=== PATIENT | male | born 1980 | race Caucasian/White ===

== ENCOUNTER 2021-03-14 10:48 | Outpatient (REF) | payer MEDICARE, MEDICAID, SELFPAY ==
--- NOTE | 2021-03-14 13:28 | MHC.AU.HFU ---
Hearing Instrument Follow-Up- Binaural Date of Visit: 03/14/21 Right Ear: Manufacturing Automation Engineer: Phonak Model: Fresh Nationeo M50-13T Serial Number: [id number] Repair Warranty: 03/25/2023 Loss and Damage Warranty: 04/05/2023 Battery Size: 13 Type of Mold: Slim Tip Type of Wax Guard: CeruStop Left Ear: Manufacturing Automation Engineer: Phonak Model: Fresh Nationeo M50-13T Serial Number: [id number] Repair Warranty: 04/05/2023 Loss and Damage Warranty: Loss and Damage used for left instrument on 07/08/2020 Battery Size: 13 Type of Dome: Small Open Type of Wax Guard: CeruShield Follow-Up Summary: Patient requested hearing aid maintenance and volume increase. Maintenance performed. Slim tip cleaned. Wax guards replaced. Left dome and retention tail replaced. Battery compartments cleaned. Hearing aids are amplifying clearly. At patient request, overall gain was raised on the right instrument by 5 steps. Feedback process improvement manager re-run. Patient was pleased with the adjustment. Patient was dispensed 42 batteries. He was dispensed 2 packs of wax guards. Recommendations: Recommendations: Hearing instrument follow-up or maintenance as needed. Diagnosis Code(s): Primary Diagnosis: H90.A31 Mixed HL, Unilateral Right Ear, W/Restricted Contralateral Signature: Provider: Jossy Leon, [facility]
== END 2021-03-14 10:49 | disposition home or self-care (01) ==
LOC: HO.HAP 10:48
PROVIDERS: Visit Provider Internal Medicine Gastroenterology
DX: Z46.1 Encounter for fitting and adjustment of hearing aid (principal); H90.A31 Mixed conductive and sensorineural hearing loss, unilateral, right ear with restricted hearing on the contralateral side
CPT/HCPCS: 92593; V5266

== ENCOUNTER 2021-03-14 11:18 | Outpatient (REF) | payer SELFPAY | END 2021-03-14 11:19 | disposition home or self-care (01) | LOC: HO.HAP 11:18 | PROVIDERS: Visit Provider Internal Medicine Gastroenterology | DX: Z46.1 Encounter for fitting and adjustment of hearing aid (principal); H90.A31 Mixed conductive and sensorineural hearing loss, unilateral, right ear with restricted hearing on the contralateral side | CPT/HCPCS: V5267 ==

== ENCOUNTER 2021-10-03 10:49 | Outpatient (REF) | payer MEDICARE, MEDICAID, SELFPAY ==
--- NOTE | 2021-10-06 08:01 | MHC.AU.HFU ---
Hearing Instrument Follow-Up- Binaural Date of Visit: 10/03/21 Right Ear: Inspector Fuel Hose: Phonak Model: Jossyeo M50-13T Serial Number: [id number] Repair Warranty: 03/25/2023 Loss and Damage Warranty: 04/05/2023 Battery Size: 13 Type of Mold: Slim Tip Type of Wax Guard: CeruStop Dispensed By: [facility] Date of Fittin01/03/2020 Left Ear: Inspector Fuel Hose: Phonak Model: Audeo M50-13T Serial Number: [id number] Repair Warranty: 04/05/2023 Loss and Damage Warranty: Loss and Damage used for left instrument on 07/08/2020 Battery Size: 13 Type of Dome: Small Open Type of Wax Guard: CeruShield Dispensed By: [facility] Date of Fittin01/03/2020 Follow-Up Summary: Patient reports that he is not hearing well out of his hearing aids and questions if he needs an adjustment. Hearing aid maintenance performed. Wax guard replaced in the left factory representative. On the right mold, it was noted that the ring was unable to hold a wax guard in place. Wax removed from the right factory representative. Debris vacuumed out of microphones. Hearing aids are amplifying clearly after maintenance. In [employer], it was noted that the feedback event marketing manager was cutting off a fair bit of high frequency gain. Re-ran feedback test which did not improve the cut-off level. Otoscopy performed- minimal cerumen bilaterally. The left dome was switched to a medium vented dome and feedback test was re-run. The amount of gain possible improved. An impression was taken of the right ear for a new cShell. This will allow for a tighter fit, and also address patient's concern that the current hollow slim tip tends to accumulate wax inside where his tools cannot reach. Overall gain increased by 2 steps. Patient was pleased with the improvement in the left hearing aid. Discussed that once the new cShell arrives, we should have more room to work with on the right hearing aid. Recommendations: Recommendations: Patient will be contacted when materials have arrived. Diagnosis Code(s): Primary Diagnosis: H90.A31 Mixed HL, Unilateral Right Ear, W/Restricted Contralateral Signature: Provider: Jossy Leon, [facility]
== END 2021-10-03 10:50 | disposition home or self-care (01) ==
LOC: HO.HAP 10:49
PROVIDERS: Visit Provider Internal Medicine Gastroenterology
DX: Z46.1 Encounter for fitting and adjustment of hearing aid (principal); H90.A31 Mixed conductive and sensorineural hearing loss, unilateral, right ear with restricted hearing on the contralateral side
CPT/HCPCS: 92593; V5275

== ENCOUNTER 2021-10-30 12:27 | Outpatient (REF) | payer MEDICARE, MEDICAID, SELFPAY | END 2021-10-30 12:28 | disposition home or self-care (01) | LOC: HO.HAP 12:27 | PROVIDERS: Visit Provider Internal Medicine Gastroenterology | DX: Z46.1 Encounter for fitting and adjustment of hearing aid (principal); H90.A31 Mixed conductive and sensorineural hearing loss, unilateral, right ear with restricted hearing on the contralateral side | CPT/HCPCS: V5264 ==

== ENCOUNTER 2021-12-24 10:28 | Outpatient (REF) | payer MEDICARE, MEDICAID, SELFPAY ==
--- NOTE | 2021-12-24 11:34 | MHC.AU.HFU ---
Hearing Instrument Follow-Up- Binaural Date of Visit: 12/24/21 Right Ear: Stucco Applicator: Phonak Model: Radiant Communicationseo M50-13T Serial Number: [id number] Repair Warranty: 03/25/2023 Loss and Damage Warranty: 04/05/2023 Battery Size: 13 Legal Stenographer: #2 Power Type of Dome: Large Power Dome Type of Mold: Canal Lock C-Shell #[id number] Warranty 02/12/2022 (Not Currently in Use) Type of Wax Guard: CeruShield Dispensed By: [facility] Date of Fittin01/03/2020 Left Ear: Stucco Applicator: Phonak Model: Radiant Communicationseo M50-13T Serial Number: [id number] Repair Warranty: 04/05/2023 Loss and Damage Warranty: Loss and Damage used for left instrument on 07/08/2020 Battery Size: 13 Legal Stenographer: #2 Medium Type of Dome: Large Vented Dome Type of Wax Guard: CeruShield Dispensed By: [facility] Date of Fittin01/03/2020 Follow-Up Summary: Patient reports that he accidentally dropped his right hearing and the canal lock portion of the cShell broke off, exposing the wiring inside. It is still working for the moment, but is more likely to have moisture issues since the wiring is exposed. Patient asked if he could try a dome on the right side instead. Switched to a size 2P web development intern with large power dome. Adjusted acoustic settings and re-ran feedback test. Patient preferred the sound and feel of the power dome. He also asked to change the left medium vented dome to a large. He also asked for overall gain to be raised- it was raised by 4 steps until patient reported the sound was comfortable and clear. Recommendations: Recommendations: Hearing instrument follow-up or maintenance as needed. Diagnosis Code(s): Primary Diagnosis: H90.A31 Mixed HL, Unilateral Right Ear, W/Restricted Contralateral Signature: Provider: Jossy Leon, [facility]
== END 2021-12-24 10:29 | disposition home or self-care (01) ==
LOC: HO.HAP 10:28
PROVIDERS: Visit Provider Internal Medicine Gastroenterology
DX: Z13.89 Encounter for screening for other disorder (principal)

== ENCOUNTER 2022-05-29 11:24 | Outpatient (REF) | payer SELFPAY | END 2022-05-29 11:25 | disposition home or self-care (01) | LOC: HO.HAP 11:24 | PROVIDERS: Visit Provider Internal Medicine Gastroenterology | DX: Z46.1 Encounter for fitting and adjustment of hearing aid (principal); H90.A31 Mixed conductive and sensorineural hearing loss, unilateral, right ear with restricted hearing on the contralateral side | CPT/HCPCS: 92593; V5267 ==

== ENCOUNTER 2022-06-02 13:44 | Outpatient (REF) | payer MEDICARE, MEDICAID, SELFPAY | END 2022-06-02 13:45 | disposition home or self-care (01) | LOC: HO.HAP 13:44 | PROVIDERS: Visit Provider Internal Medicine Gastroenterology | DX: Z13.89 Encounter for screening for other disorder (principal) ==

== ENCOUNTER 2022-07-23 10:56 | Outpatient (REF) | payer MEDICARE, MEDICAID, SELFPAY ==
--- NOTE | 2022-07-23 13:06 | MHC.AU.HFU ---
Hearing Instrument Follow-Up- Binaural Date of Visit: 07/23/22 Right Ear: Lpn Medical Assistant: Phonak Model: Beyond Credentialseo M50-13T Serial Number: [id number] Repair Warranty: 03/25/2023 Loss and Damage Warranty: 04/05/2023 Battery Size: 13 Physical Sciences Professor: #2 Power Type of Dome: Large Power Dome Type of Mold: Canal Lock C-Shell #[id number] Warranty 02/12/2022 (Not Currently in Use) Type of Wax Guard: CeruStop Dispensed By: [facility] Date of Fittin01/03/2020 Left Ear: Lpn Medical Assistant: Phonak Model: Audeo M50-13T Serial Number: [id number] Repair Warranty: 04/05/2023 Loss and Damage Warranty: Loss and Damage used for left instrument on 07/08/2020 Battery Size: 13 Physical Sciences Professor: #2 Medium Type of Dome: Large Vented Dome Type of Wax Guard: CeruShield Dispensed By: [facility] Date of Fittin01/03/2020 Follow-Up Summary: Both aids dropped off today with patient noting the right aid is not working, wants both aids louder, and does not want the domes on the aid(s) anymore. Right aid very weak, replaced #2 power traffic analysis technician with aid now amplifying clearly. Placed new domes on both aids and cleaned with both amplifying well. Left a voice message for patient saying the aids are both now working and replaced the domes. IF PATIENT WANTS TO CHANGE TO SLIM TIP (ANLY THE RIGHT TIP WAS DROPPED OFF. ? IF A SLIM TIP WAS EVER MADE FOR THE LEFT AID) PATIENT WILL NEED TO SCHEDULE AN APPOINTMENT WITH AN CLIENT SERVICE MANAGER. Diagnosis Code(s):Primary Diagnosis: H90.3 Bilateral Sensorineural Hearing Loss Signature:Provider: Arlette Cramer, [facility]
== END 2022-07-23 10:57 | disposition home or self-care (01) ==
LOC: HO.HAP 10:56
PROVIDERS: Visit Provider Internal Medicine Gastroenterology
DX: Z13.89 Encounter for screening for other disorder (principal)

== ENCOUNTER 2022-07-27 10:20 | Outpatient (REF) | payer MEDICARE, MEDICAID, SELFPAY | END 2022-07-27 10:21 | disposition home or self-care (01) | LOC: HO.HAP 10:20 | PROVIDERS: Visit Provider Internal Medicine Gastroenterology | DX: Z46.1 Encounter for fitting and adjustment of hearing aid (principal); H90.3 Sensorineural hearing loss, bilateral | CPT/HCPCS: V5266 ==

== ENCOUNTER 2022-08-14 12:51 | Outpatient (REF) | payer MEDICARE, MEDICAID, SELFPAY | END 2022-08-14 12:52 | disposition home or self-care (01) | LOC: HO.HAP 12:51 | PROVIDERS: Visit Provider Internal Medicine Gastroenterology | DX: Z46.1 Encounter for fitting and adjustment of hearing aid (principal); H90.3 Sensorineural hearing loss, bilateral | CPT/HCPCS: V5275 ==

== ENCOUNTER 2022-09-07 12:59 | Outpatient (REF) | payer MEDICARE, MEDICAID, SELFPAY ==
--- NOTE | 2022-09-07 13:55 | MHC.AU.HFU ---
Hearing Instrument Follow-Up- Binaural Date of Visit: 09/07/22 Right Ear: Jayce Almonte 50-13T Mershon Serial #[id number] Repair Warranty: 03/25/2023 Loss and Damage Warranty: 04/05/2023 Service Plan: 01/03/2021 Battery Size: 13 Almond Paste Molder: #2 Power Type of Dome: Large Power Dome Type of Mold: Canal Lock C-Shell #[id number] Remake Warranty 11/26/2022 Type of Wax Guard: CeruStop Dispensed By: [facility] Date of Fittin01/03/2020 Left Ear: Jayce Almonte 50-13T Mershon Serial #[id number] Repair Warranty: 04/05/2023 Loss and Damage Warranty: Loss and Damage used for left instrument on 07/08/2020 Service Plan: 01/03/2021 Battery Size: 13 Almond Paste Molder: #2 Medium Type of Dome: Large Vented Dome Type of Mold: Phonak Canal lock C-Shell #[id number] Remake Warranty 11/26/2022 Type of Wax Guard: CeruStop Dispensed By: [facility] Date of Fittin01/03/2020 Follow-Up Summary: Fit the new binaural canal lock C-Shells, changed acoustic parameters, and ran feedback test with good results. Patient reports better retention of the aids now. Reviewed wax guard change and using volume control if needed. [facility] Recommendations: Hearing instrument follow-up or maintenance as needed. Please contact our clinic with any questions or concerns. Diagnosis Code(s):Primary Diagnosis: H90.3 Bilateral Sensorineural Hearing Loss Services Performed:Earmold (Quantity): 2 Signature:Provider: Ed Cramer, [facility]
== END 2022-09-07 13:00 | disposition home or self-care (01) ==
LOC: HO.HAP 12:59
PROVIDERS: Visit Provider Internal Medicine Gastroenterology
DX: Z46.1 Encounter for fitting and adjustment of hearing aid (principal); H90.3 Sensorineural hearing loss, bilateral
CPT/HCPCS: V5264

== ENCOUNTER 2023-03-31 10:58 | Outpatient (REF) | payer MEDICARE, MEDICAID, SELFPAY | END 2023-03-31 10:59 | disposition home or self-care (01) | LOC: HO.HAP 10:58 | PROVIDERS: Visit Provider Internal Medicine Gastroenterology | DX: Z13.89 Encounter for screening for other disorder (principal) ==

== ENCOUNTER 2023-04-15 09:28 | Outpatient (REF) | payer MEDICARE, MEDICAID, SELFPAY | END 2023-04-15 09:29 | disposition home or self-care (01) | LOC: HO.HAP 09:28 | PROVIDERS: Visit Provider Otolaryngology | DX: Z46.1 Encounter for fitting and adjustment of hearing aid (principal); H90.3 Sensorineural hearing loss, bilateral | CPT/HCPCS: V5014; V5264; V5266 ==

== ENCOUNTER 2023-10-12 11:40 | Outpatient (REF) | payer MEDICARE, MEDICAID, SELFPAY | END 2023-10-12 11:41 | disposition home or self-care (01) | LOC: HO.HAP 11:40 | PROVIDERS: Visit Provider Internal Medicine | DX: Z46.1 Encounter for fitting and adjustment of hearing aid (principal); H90.3 Sensorineural hearing loss, bilateral | CPT/HCPCS: 92592; V5266 ==

== ENCOUNTER 2023-10-13 12:49 | Outpatient (REF) | payer MEDICARE, MEDICAID, SELFPAY | END 2023-10-13 12:50 | disposition home or self-care (01) | LOC: HO.HAP 12:49 | PROVIDERS: Visit Provider Internal Medicine Gastroenterology | DX: Z13.89 Encounter for screening for other disorder (principal) ==

== ENCOUNTER 2023-10-13 12:54 | Outpatient (REF) | payer MEDICARE, MEDICAID, SELFPAY | END 2023-10-13 12:55 | disposition home or self-care (01) | LOC: HO.HAP 12:54 | PROVIDERS: Visit Provider Internal Medicine Gastroenterology | DX: Z13.89 Encounter for screening for other disorder (principal) ==

== ENCOUNTER 2023-10-18 12:07 | Outpatient (REF) | payer MEDICARE, MEDICAID, SELFPAY | END 2023-10-18 12:08 | disposition home or self-care (01) | LOC: HO.HAP 12:07 | PROVIDERS: Visit Provider Internal Medicine Gastroenterology | DX: Z13.89 Encounter for screening for other disorder (principal) ==

== ENCOUNTER 2023-11-01 15:00 | Outpatient (REF) | payer MEDICARE, MEDICAID, SELFPAY ==
--- NOTE | 2023-11-02 08:08 | MHC.AU.HA3 ---
Hearing Instrument Follow-Up- Binaural Date of Visit: 11/01/23 Right Ear: Alvaro, , Color, Serial Number: Jayce Almonte 50-13T SN: [id number] Color: [place] Disassembler Repair Warranty: 03/25/2023 Disassembler Loss and Damage Warranty: 03/25/2023 [facility] Service Plan: 01/03/2021 Battery Size: 13 Continuity Writer/Slim Tube: #2 Power Earmold/Dome/CShell/SlimTip:Canal Lock C-Shell SN: [id number] Warranty: 07/05/2023 Type of Wax Guard: CeruStop Dispensed By: [facility] Date of Fittin01/03/2020 Left Ear: Alvaro, , Color, Serial Number: Jayce Almonte 50-13T SN: [id number] Color: [place] Disassembler Repair Warranty: 03/25/2023 Disassembler Loss and Damage Warranty: USED [facility] Service Plan: 01/03/2021 Battery Size: 13 Continuity Writer/Slim Tube: #2 Medium Earmold/Dome/CShell/SlimTip: Phonak Canal lock C-Shell SN: [id number] Warranty: 07/05/2023 Type of Wax Guard: CeruStop Dispensed By: [facility] Date of Fittin01/03/2020 Follow-Up Summary: Transferred left repaired ecological modeler wire and c-shell to Kenji's hearing aid. Returned loaner ecological modeler. Kenji had a doctor's order for an updated hearing test. Scheduled evaluation on 11/11/2023. Recommendations: Hearing instrument follow-up or maintenance as needed. Please contact our clinic with any questions or concerns. Diagnosis Code(s): Primary Diagnosis: H90.A31 Mixed HL, Unilateral Right Ear, W/Restricted Contralateral Secondary Diagnosis: H90.A22 SNHL, Unilatearl, Left Ear, W/Restricted Contralateral Hearing Signature: Provider: Ed Florez, [facility]
== END 2023-11-01 15:01 | disposition home or self-care (01) ==
LOC: HO.HAP 15:00
PROVIDERS: Visit Provider Internal Medicine
DX: Z46.1 Encounter for fitting and adjustment of hearing aid (principal); H90.A31 Mixed conductive and sensorineural hearing loss, unilateral, right ear with restricted hearing on the contralateral side; H90.A22 Sensorineural hearing loss, unilateral, left ear, with restricted hearing on the contralateral side
CPT/HCPCS: 92700; V5014

== ENCOUNTER 2023-11-11 12:49 | Outpatient (REF) | payer MEDICARE, MEDICAID, SELFPAY ==
--- NOTE | 2023-11-11 15:40 | MHC.AU.HA3 ---
Hearing Instrument Follow-Up- Binaural Date of Visit: 11/11/23 Right Ear: Alvaro, Model, Color, Serial Number: Jayce Almonte 50-13T SN: [id number] Color: [place] Truck Shop Supervisor Repair Warranty: 03/25/2023 Truck Shop Supervisor Loss and Damage Warranty: 03/25/2023 [facility] Service Plan: 01/03/2021 Battery Size: 13 Manufacturing Storeperson/Slim Tube: #2 Power Earmold/Dome/CShell/SlimTip:Canal Lock C-Shell SN: [id number] Warranty: 07/05/2023 Type of Wax Guard: CeruStop Dispensed By: [facility] Date of Fittin01/03/2020 Left Ear: Alvaro, , Color, Serial Number: Jayce Almonte 50-13T SN: [id number] Color: [place] Truck Shop Supervisor Repair Warranty: 03/25/2023 Truck Shop Supervisor Loss and Damage Warranty: USED [facility] Service Plan: 01/03/2021 Battery Size: 13 Manufacturing Storeperson/Slim Tube: #2 Power Earmold/Dome/CShell/SlimTip: Phonak Canal lock C-Shell SN: [id number] Warranty: 07/05/2023 Type of Wax Guard: CeruStop Dispensed By: [facility] Date of Fittin01/03/2020 Follow-Up Summary: Here for evaluation. Reports left aid is not streaming. Cleaned and checked aids, cleaned earmolds, both wax guards and vents blocked up. Listening check positive after cleaning. Deleted all pairings and then restored, all set. Advised to come back in if streaming issues return. Checked hearing aid settings, did not make any changes to gain relative to audiogram changes today as both aids are already considerably over targets and he reports good satisfaction with them at this time. Recommendations: Recommendations: Hearing instrument follow-up or maintenance as needed. Please contact our clinic with any questions or concerns. Patient will call if problems persist. Diagnosis Code(s): Primary Diagnosis: H90.A31 Mixed HL, Unilateral Right Ear, W/Restricted Contralateral Secondary Diagnosis: H90.A22 SNHL, Unilatearl, Left Ear, W/Restricted Contralateral Hearing Signature: Provider: Ed Hackett, [facility]
== END 2023-11-11 12:50 | disposition home or self-care (01) ==
LOC: HO.SH 12:49
PROVIDERS: Visit Provider Internal Medicine
DX: Z01.118 Encounter for examination of ears and hearing with other abnormal findings (principal); H90.A31 Mixed conductive and sensorineural hearing loss, unilateral, right ear with restricted hearing on the contralateral side; H90.A22 Sensorineural hearing loss, unilateral, left ear, with restricted hearing on the contralateral side
CPT/HCPCS: 92557; 92567; 92593; 99499

== ENCOUNTER 2024-04-18 12:11 | Outpatient (REF) | payer MEDICARE, MEDICAID, SELFPAY ==
--- NOTE | 2024-04-18 13:57 | MHC.AU.HA3 ---
Addendum entered and electronically signed by Jossy Hackett CCC-A 04/18/24 15:01: Spoke with Kenji this afternoon. He would like a new impression for better fit of the new c-shell. He is going to brain picker his left aid with a loaner cash management associate and small power dome to use in the meantime. He will schedule impression appt. when he picks up his hearing aid. Original Note: Hearing Instrument Follow-Up- Binaural Date of Visit: 04/18/24 Right Ear: Alvaro, Model, Color, Serial Number: Jayce Almonte 50-13T SN: [id number] Color: [place] Field Specialist Repair Warranty: 03/25/2023 Field Specialist Loss and Damage Warranty: 03/25/2023 [facility] Service Plan: 01/03/2021 Battery Size: 13 Electrical Contacts Adjuster/Slim Tube: #2 Power Earmold/Dome/CShell/SlimTip:Canal Lock C-Shell SN: [id number] Warranty: 07/05/2023 Type of Wax Guard: CeruStop Dispensed By: [facility] Date of Fittin01/03/2020 Left Ear: Alvaro, Model, Color, Serial Number: Jayce Almonte 50-13T SN: [id number] Color: [place] Field Specialist Repair Warranty: 03/25/2023 Field Specialist Loss and Damage Warranty: USED [facility] Service Plan: 01/03/2021 Battery Size: 13 Electrical Contacts Adjuster/Slim Tube: #2 Power Earmold/Dome/CShell/SlimTip: Phonak Canal lock C-Shell SN: [id number] Warranty: 07/05/2023 Type of Wax Guard: CeruStop Dispensed By: [facility] Date of Fittin01/03/2020 Follow-Up Summary: Left aid dropped off for cleaning. Found to be very weak despite cleaning and vacuuming out cash management associate port of c-shell which was missing the wax guard. Listening check positive with stock lifter. L/M with pt. informing of need for new c-shell. Advised we can order a replacement if he feels that this current one is still comfortable and fitting well or he can make an impression appointment if the fit is not good. Will proceed once patient responds. Diagnosis Code(s): Primary Diagnosis: H90.A31 Mixed HL, Unilateral Right Ear, W/Restricted Contralateral Secondary Diagnosis: H90.A22 SNHL, Unilateral, Left Ear, W/Restricted Contralateral Hearing Signature: Provider: Ed Payton, [facility]
== END 2024-04-18 12:12 | disposition home or self-care (01) ==
LOC: HO.HAP 12:11
PROVIDERS: Visit Provider Internal Medicine Gastroenterology
DX: Z13.89 Encounter for screening for other disorder (principal)

== ENCOUNTER 2024-04-18 12:14 | Outpatient (REF) | payer SELFPAY | END 2024-04-18 12:15 | disposition home or self-care (01) | LOC: HO.HAP 12:14 | PROVIDERS: Visit Provider Internal Medicine Gastroenterology | DX: Z46.1 Encounter for fitting and adjustment of hearing aid (principal); H90.A31 Mixed conductive and sensorineural hearing loss, unilateral, right ear with restricted hearing on the contralateral side; H90.A22 Sensorineural hearing loss, unilateral, left ear, with restricted hearing on the contralateral side | CPT/HCPCS: V5267 ==

== ENCOUNTER 2024-04-19 11:52 | Outpatient (REF) | payer MEDICARE, MEDICAID, SELFPAY | END 2024-04-19 11:53 | disposition home or self-care (01) | LOC: HO.HAP 11:52 | PROVIDERS: Visit Provider Internal Medicine | DX: Z46.1 Encounter for fitting and adjustment of hearing aid (principal); H90.A31 Mixed conductive and sensorineural hearing loss, unilateral, right ear with restricted hearing on the contralateral side; H90.A22 Sensorineural hearing loss, unilateral, left ear, with restricted hearing on the contralateral side | CPT/HCPCS: 92592; 99499 ==

== ENCOUNTER 2024-04-25 14:28 | Outpatient (REF) | payer MEDICARE, MEDICAID, SELFPAY | END 2024-04-25 14:29 | disposition home or self-care (01) | LOC: HO.HAP 14:28 | PROVIDERS: Visit Provider Internal Medicine | DX: Z46.1 Encounter for fitting and adjustment of hearing aid (principal); H90.A22 Sensorineural hearing loss, unilateral, left ear, with restricted hearing on the contralateral side; H90.A31 Mixed conductive and sensorineural hearing loss, unilateral, right ear with restricted hearing on the contralateral side | CPT/HCPCS: V5275 ==

== ENCOUNTER 2024-05-12 10:15 | Outpatient (REF) | payer MEDICARE, MEDICAID, SELFPAY ==
--- NOTE | 2024-05-12 13:18 | MHC.AU.HA3 ---
Hearing Instrument Follow-Up- Binaural Date of Visit: 05/12/24 Right Ear: Alvaro, Model, Color, Serial Number: Jayce Almonte 50-13T SN: [id number] Color: [place] Boring Machine Operator Horizontal Repair Warranty: 03/25/2023 Boring Machine Operator Horizontal Loss and Damage Warranty: 03/25/2023 [facility] Service Plan: 01/03/2021 Battery Size: 13 Ship Painter Helper/Slim Tube: #2 Power Earmold/Dome/CShell/SlimTip:Canal Lock C-Shell SN: [id number] Warranty: 07/05/2023 Type of Wax Guard: CeruStop Dispensed By: [facility] Date of Fittin01/03/2020 Left Ear: Alvaro, Model, Color, Serial Number: Jayce Almonte 50-13T SN: [id number] Color: [place] Boring Machine Operator Horizontal Repair Warranty: 03/25/2023 Boring Machine Operator Horizontal Loss and Damage Warranty: USED [facility] Service Plan: 01/03/2021 Battery Size: 13 Ship Painter Helper/Slim Tube: #2 Power Earmold/Dome/CShell/SlimTip: Phonak Canal lock C-Shell SN: [id number] Warranty: 08/31/2024 Type of Wax Guard: CeruStop Dispensed By: [facility] Date of Fittin01/03/2020 Follow-Up Summary: Here to picker/puller new left c-shell. Fit looks good. Good subjective comfort and benefit reported. Ran feedback bilingual branch manager. Recommendations: Recommendations: Hearing instrument follow-up or maintenance as needed. Diagnosis Code(s): Primary Diagnosis: H90.A22 SNHL, Unilateral, Left Ear, W/Restricted Contralateral Hearing Secondary Diagnosis: H90.A31 Mixed HL, Unilateral Right Ear, W/Restricted Contralateral Signature: Provider: Ed Payton, [facility]
== END 2024-05-12 10:16 | disposition home or self-care (01) ==
LOC: HO.HAP 10:15
PROVIDERS: Visit Provider Internal Medicine
DX: Z46.1 Encounter for fitting and adjustment of hearing aid (principal); H90.A22 Sensorineural hearing loss, unilateral, left ear, with restricted hearing on the contralateral side; H90.A31 Mixed conductive and sensorineural hearing loss, unilateral, right ear with restricted hearing on the contralateral side
CPT/HCPCS: V5264

== ENCOUNTER 2024-08-08 12:00 | Outpatient (REF) | payer MEDICARE, MEDICAID, SELFPAY ==
--- NOTE | 2024-08-09 12:34 | MHC.AU.HA3 ---
Hearing Instrument Follow-Up- Binaural Date of Visit: 08/08/24 Right Ear: Alvaro, Model, Color, Serial Number: Jayce Almonte 50-13T SN: [id number] Color: [place] Puppet Developer Repair Warranty: 03/25/2023 Puppet Developer Loss and Damage Warranty: 03/25/2023 [facility] Service Plan: 01/03/2021 Battery Size: 13 Heel Sewer/Slim Tube: #2 Power Earmold/Dome/CShell/SlimTip:Canal Lock C-Shell SN: [id number] Warranty: 07/05/2023 Type of Wax Guard: CeruStop Dispensed By: [facility] Date of Fittin01/03/2020 Left Ear: Alvaro, , Color, Serial Number: Jayce Almonte 50-13T SN: [id number] Color: [place] Puppet Developer Repair Warranty: 03/25/2023 Puppet Developer Loss and Damage Warranty: USED [facility] Service Plan: 01/03/2021 Battery Size: 13 Heel Sewer/Slim Tube: #2 Power Earmold/Dome/CShell/SlimTip: Phonak Canal lock C-Shell SN: [id number] Warranty: 07/05/2023 Type of Wax Guard: CeruStop Dispensed By: [facility] Date of Fittin01/03/2020 Follow-Up Summary: Both aids dropped off. Found both aids missing wax guards, wax in primary class teacher ports. Cleaned aids, cleaned earmolds, ran through dehumidifier, vacuumed out primary class teacher ports, replaced wax guards. Listening check positive. Tested VC function. All good. Recommendations: Recommendations: Hearing instrument follow-up or maintenance as needed. Diagnosis Code(s): Primary Diagnosis: H90.A22 SNHL, Unilateral, Left Ear, W/Restricted Contralateral Hearing Secondary Diagnosis: H90.A31 Mixed HL, Unilateral Right Ear, W/Restricted Contralateral Signature: Provider: Ed Payton, [facility]
== END 2024-08-08 12:01 | disposition home or self-care (01) ==
LOC: HO.HAP 12:00
PROVIDERS: Visit Provider Internal Medicine Gastroenterology
DX: Z13.89 Encounter for screening for other disorder (principal)

== ENCOUNTER 2024-08-10 12:04 | Outpatient (REF) | payer SELFPAY | END 2024-08-10 12:05 | disposition home or self-care (01) | LOC: HO.HAP 12:04 | PROVIDERS: Visit Provider Internal Medicine Gastroenterology | DX: Z46.1 Encounter for fitting and adjustment of hearing aid (principal); H90.A22 Sensorineural hearing loss, unilateral, left ear, with restricted hearing on the contralateral side; H90.A31 Mixed conductive and sensorineural hearing loss, unilateral, right ear with restricted hearing on the contralateral side | CPT/HCPCS: V5267 ==

== ENCOUNTER 2024-08-10 12:13 | Outpatient (REF) | payer MEDICARE, MEDICAID, SELFPAY | END 2024-08-10 12:14 | disposition home or self-care (01) | LOC: HO.HAP 12:13 | PROVIDERS: Visit Provider Internal Medicine | DX: Z46.1 Encounter for fitting and adjustment of hearing aid (principal); H90.A31 Mixed conductive and sensorineural hearing loss, unilateral, right ear with restricted hearing on the contralateral side; H90.A22 Sensorineural hearing loss, unilateral, left ear, with restricted hearing on the contralateral side | CPT/HCPCS: 92593; 99499; V5266 ==

== ENCOUNTER 2024-12-19 11:36 | Outpatient (REF) | payer MEDICARE, MEDICAID, SELFPAY ==
--- OUTSIDE RECORDS SUMMARY | 2024-12-19 12:37 | XMS_ITS | Clinical Summary ---
Author Organization [facility] Address [address] [place] [address] Care Team Providers Care Business Continuity Planning Director Name Role Phone Kyara Hopson DO Primary Care Provider [phone] Medical History Medical History Date Comments Hearing loss of both ears 06/11/2015 DX:Hea ring loss of both ears Family history of ovarian cancer 06/11/2015 DX:Family history of ovarian cancer Family History Medical History Relation Name Comments Other cancer Mother ovarian Relation Name Status Comments Mother Social History Tobacco Use Types Packs/Day Years Used Date Smoking Tobacco: Never Smokeless Tobacco: Never Alcohol Use Standard Drinks/Week Comments No 0 (1 standard drink = 0.6 oz pur e alcohol) Sex and Gender Information Value Date Recorded Sex Assigned at Not on file Gender Identity Not on file Sexual Orientation Not on file Obstetrics History Last Filed Vital Signs Vital Sign Reading Time Taken Comments Blood Pressure 130/86 11/23/2023 10:57 AM EST Pulse 88 11/23/2023 10:57 AM EST Temperature - - Respiratory Rate - - Oxygen Saturation - - Inhaled Oxygen Concentration - - Weight 120 kg (265 lb) 11/23/2023 10:57 AM EST Height 175.3 cm (5' 9 ) 11/23/2023 10:57 AM EST Body Mass Index 39.13 11/23/2023 10:57 AM EST Plan of Treatment Health Maintenance Due Date Last Done Comments Hepatitis B Vaccines (1 of 3 - 19+ 3-dose series) 1999 Cholesterol Screening (Lipid Panel) 10/18/2022 Depression Screening 10/18/2022 HIV Screening 10/18/2022 Hepatitis C Screening 10/18/2022 Social Influencers of Health Screening 10/18/2022 COVID-19 Vaccine ( - 2023-2 5 season) 2024 Influenza Vaccine (#1) 2024 DTaP,Tdap,and Td Vaccines (2 - Td or Tdap) 09/02/2025 09/02/2015 HIB Vaccines Aged Out No longer eligi ble based on patient's age to complete this topic HPV Vaccines Aged Out No longer eligi ble based on patient's age to complete this topic Hepatitis A Vaccines Aged Out No long er eligible based on patient's age to complete this topic IPV Vaccines Aged Out No longer eligi ble based on patient's age to complete this topic MMR Vaccines Aged Out No longer eligi ble based on patient's age to complete this topic Meningococcal ACWY Vaccine Aged Out N o longer eligible based on patient's age to complete this topic Pneumococcal Vaccine: Pediat rics (0 to 5 Years) and At-Risk Patients (6 to 64 Years) Aged Out No longer eligi ble based on patient's age to complete this topic RSV Immunization Patients Un ema 20 months Aged Out No longer eligible b ased on patient's age to complete this topic Varicella Vaccines Aged Out No longer eligible based on patient's age to complete this topic Care Teams Business Continuity Planning Director Relationship Specialty Start Date End Date Kyara Hopson DO PCP - General Internal Medicine 03/06/22
--- NOTE | 2024-12-19 13:44 | MHC.AU.HA3 ---
Hearing Instrument Follow-Up- Binaural Date of Visit: 12/19/24 Right Ear: Alvaro, Model, Color, Serial Number: Jayce Almonte 50-13T SN: [id number] Color: [place] Weatherization Director Repair Warranty: 03/25/2023 Weatherization Director Loss and Damage Warranty: 03/25/2023 [facility] Service Plan: 01/03/2021 Battery Size: 13 Wire Weaver Helper/Slim Tube: #2 Power Earmold/Dome/CShell/SlimTip:Canal Lock C-Shell SN: [id number] Warranty: 07/05/2023 Type of Wax Guard: CeruStop Dispensed By: [facility] Date of Fittin01/03/2020 Left Ear: Alvaro, , Color, Serial Number: Jayce Almonte 50-13T SN: [id number] Color: [place] Weatherization Director Repair Warranty: 03/25/2023 Weatherization Director Loss and Damage Warranty: USED [facility] Service Plan: 01/03/2021 Battery Size: 13 Wire Weaver Helper/Slim Tube: #2 Power Earmold/Dome/CShell/SlimTip: Phonak Canal lock C-Shell SN: [id number] Warranty: 07/05/2023 Type of Wax Guard: CeruStop Dispensed By: [facility] Date of Fittin01/03/2020 Follow-Up Summary: Both aids dropped off weak . Found wax guards missing, wax built up in receivers. Cleaned aids, cleaned earmolds, vacuumed receivers, replaced wax guards. Listening check positive. Would advise against c-shells for Kenji in the future due to this repeated issue with c-shells previously having to be replaced due to wax build up that could not be cleared from receivers. Recommendations: Recommendations: Hearing instrument follow-up or maintenance as needed. Diagnosis Code(s): Primary Diagnosis: H90.A22 SNHL, Unilateral, Left Ear, W/Restricted Contralateral Hearing Secondary Diagnosis: H90.A31 Mixed HL, Unilateral Right Ear, W/Restricted Contralateral Signature: Provider: Ed Payton, [facility]
== END 2024-12-19 11:37 | disposition home or self-care (01) ==
LOC: HO.HAP 11:36
PROVIDERS: Visit Provider Internal Medicine Gastroenterology
DX: Z13.89 Encounter for screening for other disorder (principal)

== ENCOUNTER 2024-12-22 11:31 | Outpatient (REF) | payer MEDICARE, MEDICAID, SELFPAY ==
--- OUTSIDE RECORDS SUMMARY | 2024-12-22 12:36 | XMS_ITS | Clinical Summary ---
Author Organization [facility] Address [address] [place] [address] Care Team Providers Care Youth Counselor Name Role Phone Kyara Hopson DO Primary Care Provider [phone] Medical History Medical History Date Comments Hearing [...] age to complete this topic Care Teams Youth Counselor Relationship Specialty Start Date End Date Kyara Hopson DO PCP - General Internal Medicine 03/06/22
== END 2024-12-22 11:32 | disposition home or self-care (01) ==
LOC: HO.HAP 11:31
PROVIDERS: Visit Provider Internal Medicine Gastroenterology
DX: Z46.1 Encounter for fitting and adjustment of hearing aid (principal)
CPT/HCPCS: 92593; 99499

== ENCOUNTER 2025-04-16 09:05 | Outpatient (REF) | payer MEDICARE, MEDICAID, SELFPAY ==
--- NOTE | 2025-04-16 09:36 | MHC.AU.HA3 ---
Hearing Instrument Follow-Up- Binaural Date of Visit: 04/16/25 Right Ear: Alvaro, , Color, Serial Number: Jayce Almonte [id number] SN: [id number] Color: [place] Engineer/Conductor Repair Warranty: 03/25/2023 Engineer/Conductor Loss and Damage Warranty: 03/25/2023 [facility] Service Plan: 01/03/2021 Battery Size: 13 Radio Interference Investigator/Slim Tube: #2 Power Earmold/Dome/CShell/SlimTip:Canal Lock C-Shell SN: [id number] Warranty: 07/05/2023 Type of Wax Guard: CeruStop Dispensed By: [facility] Date of Fittin01/03/2020 Left Ear: Alvaro, , Color, Serial Number: Jayce Almonte [id number] SN: [id number] Color: [place] Engineer/Conductor Repair Warranty: 03/25/2023 Engineer/Conductor Loss and Damage Warranty: USED [facility] Service Plan: 01/03/2021 Battery Size: 13 Radio Interference Investigator/Slim Tube: #2 Power Earmold/Dome/CShell/SlimTip: Phonak Canal lock C-Shell SN: [id number] Warranty: 07/05/2023 Type of Wax Guard: CeruStop Dispensed By: [facility] Date of Fittin01/03/2020 Follow-Up Summary: HAs d/o, reports R L intermittent. Wax in L medical sonographer, no wax guard. Cleaned earmold to best of ability (1), changed wax guard (1), ran through dehumidifier (1) Brought L to front for pt pickup. Cleaned R earmold (1), ran through dehumidifier (1), removed debris from mics (1), did not have wax guard. 61829 x6 units. R cshell found to be , ordered new. Aid in repair drawer. Recommendations: Recommendations: Patient will be contacted when materials have arrived. Diagnosis Code(s): Primary Diagnosis: H90.A22 SNHL, Unilateral, Left Ear, W/Restricted Contralateral Hearing Secondary Diagnosis: H90.A31 Mixed HL, Unilateral Right Ear, W/Restricted Contralateral Signature: Provider: Jossy Chapa, [facility]
== END 2025-04-16 09:06 | disposition home or self-care (01) ==
LOC: HO.HAP 09:05
PROVIDERS: Visit Provider Nurse Practitioner Primary Care
DX: Z46.1 Encounter for fitting and adjustment of hearing aid (principal); H90.A22 Sensorineural hearing loss, unilateral, left ear, with restricted hearing on the contralateral side; H90.A31 Mixed conductive and sensorineural hearing loss, unilateral, right ear with restricted hearing on the contralateral side
CPT/HCPCS: V5266

== ENCOUNTER 2025-04-17 11:42 | Outpatient (REF) | payer MEDICARE, MEDICAID, SELFPAY | END 2025-04-17 11:43 | disposition home or self-care (01) | LOC: HO.HAP 11:42 | PROVIDERS: PCP Internal Medicine Gastroenterology; Visit Provider Internal Medicine Gastroenterology | DX: Z13.89 Encounter for screening for other disorder (principal) ==

== ENCOUNTER 2025-04-27 09:30 | Outpatient (REF) | payer MEDICARE, MEDICAID, SELFPAY ==
--- NOTE | 2025-04-27 13:00 | MHC.AU.HA3 ---
Hearing Instrument Follow-Up- Binaural Date of Visit: 04/27/25 Right Ear: Alvaro, Model, Color, Serial Number: Jayce Almonte [id number] SN: [id number] Color: [place] Cost Coordinator Repair Warranty: 03/25/2023 Cost Coordinator Loss and Damage Warranty: 03/25/2023 [facility] Service Plan: 01/03/2021 Battery Size: 13 Regional Sales Engineer/Slim Tube: #2 Power Earmold/Dome/CShell/SlimTip:Canal Lock C-Shell SN: [id number] Warranty 08/16/2025 Type of Wax Guard: CeruStop Dispensed By: [facility] Date of Fittin01/03/2020 Left Ear: Alvaro, Model, Color, Serial Number: Jayce Almonte [id number] SN: [id number] Color: [place] Cost Coordinator Repair Warranty: 03/25/2023 Cost Coordinator Loss and Damage Warranty: USED [facility] Service Plan: 01/03/2021 Battery Size: 13 Regional Sales Engineer/Slim Tube: #2 Power Earmold/Dome/CShell/SlimTip: Phonak Canal lock C-Shell SN: [id number] Warranty: 07/05/2023 Type of Wax Guard: CeruStop Dispensed By: [facility] Date of Fittin01/03/2020 Follow-Up Summary: Picked up new right cshell. Cleaned aids (2), vacuumed microphones (2), cleaned left earmold and replaced wax guard (1) and coupled new right cshell to hearing aid (1), 07591 x 6 units. Pt requested volume increase. Very little room left to turn up right device, left device is significantly over target. Increased left 1 click, recommend having wax removed as this might be impacting sound quality. Recommendations: Recommendations: Patient will be contacted when materials have arrived. Diagnosis Code(s): Primary Diagnosis: H90.A22 SNHL, Unilateral, Left Ear, W/Restricted Contralateral Hearing Secondary Diagnosis: H90.A31 Mixed HL, Unilateral Right Ear, W/Restricted Contralateral Signature: Provider: Jossy Chapa, [facility]
--- NOTE | 2025-04-27 13:18 | MHC.AU.MED ---
Medical Clearance for Hearing Instrumentation Date: 04/27/25 Patient Name: Kenji Mckeon Date of : 1980 Primary Care Provider: Referring Provider: Kenny Gillespie NP We have seen your patient on 04/27/25 and have determined that they are a candidate for amplification (See accompanying report). Specifically, they would benefit from: Hearing aid use in both ears There is a statute that addresses Medical Evaluation Requirements prior to fitting a patient with a hearing aid. According to [place] statute 265 CMR:6.03(1), (a) General. Except as provided in 265 CMR 6.03(1)(b), a dinkey engine firer shall not sell a hearing aid unless the prospective user has presented to the dinkey engine firer a written statement signed by a licensed physician that states that the patient's hearing loss has been medically evaluated and the patient may be considered a candidate for a hearing aid. The medical evaluation must have taken place within the preceding six months. Please note: Due to the [place] Statute referenced above, we cannot accept a signature other than that of a licensed physician. CLIPPING MARKER and PA signatures cannot be accepted. I am in agreement with the above recommendation. There is no medical contraindication for hearing instrumentation. Physician Signature Date Physician Name (Printed)
== END 2025-04-27 09:31 | disposition home or self-care (01) ==
LOC: HO.SH 09:30
PROVIDERS: Visit Provider Nurse Practitioner Primary Care
DX: Z01.118 Encounter for examination of ears and hearing with other abnormal findings (principal); H90.A22 Sensorineural hearing loss, unilateral, left ear, with restricted hearing on the contralateral side; H90.A31 Mixed conductive and sensorineural hearing loss, unilateral, right ear with restricted hearing on the contralateral side
CPT/HCPCS: 92557; 92591; 92593; 99499; V5264

== ENCOUNTER 2025-09-05 12:40 | Outpatient (REF) | payer MEDICARE, MEDICAID, SELFPAY ==
--- NOTE | 2025-09-05 13:31 | MHC.AU.HA2 ---
Hearing Instrument Fitting- Adult- Binaural Date of Visit: 09/05/25 Hearing Instruments Dispensed: Right Ear: Alvaro, Model, Color, Serial Number: Jayce Ramirez [id number] SN: [id number] Color: [place] Elephant Tamer Repair Warranty: 09/07/2028 Elephant Tamer Loss and Damage Warranty: 09/07/2028 [facility] Service Plan: 09/05/2026 Battery Size: Rechargeable Rn Hemo Dialysis/Slim Tube: 2P Earmold/Dome/CShell/SlimTip: Phonak Slim Tip Canal lock SN: [id number] Warranty 12/06/2025 Type of Wax Guard: CeruStop Left Ear: Alvaro, Model, Color, Serial Number: Jayce Ramirez [id number] SN: [id number] Color: [place] Elephant Tamer Repair Warranty: 09/07/2028 Elephant Tamer Loss and Damage Warranty: 09/07/2028 [facility] Service Plan: 09/05/2026 Battery Size: Rechargeable Rn Hemo Dialysis/Slim Tube: 2P Earmold/Dome/CShell/SlimTip: Phonak Slim Tip Canal lock SN: [id number] Warranty 12/06/2025 Type of Wax Guard: CeruStop Accessories/Assistive Technology: Herpetology Teacher SN: [id number] Summary of Fitting: Ran feedback analyzer and real ear measures. Comfortable at real ear settings. Discussed differences between old and new HAs, primarily rechargeability and c-shell vs slim tip. As a long-time [employer] user, Kenji otherwise familiar with general maintenance. Paired to cellphone. Reported sound quality better than old HAs. Has old HAs to keep as back up. Recommendations: Patient does not feel follow-up is necessary at this time. Please call our clinic with any questions or concerns. Diagnosis Code(s): Primary Diagnosis: H90.A31 Mixed HL, Unilateral Right Ear, W/Restricted Contralateral Secondary Diagnosis: H90.A22 SNHL, Unilateral, Left Ear, W/Restricted Contralateral Hearing Signature: Provider: Ed Florez, [facility]
--- OUTSIDE RECORDS SUMMARY | 2025-09-05 17:31 | XMS_ITS | Encounter Summary ---
Author Organization [facility] Address [address] [place] [address] Care Team Providers Care Audio Visual Aids Director Name Role Phone Kyara Hopson DO Primary Care Provider Unavaila ble Reason for Visit * Reason Onset Date Comments er follow up 03/06/2022 Encounter Details Date Type Department Care Team Description 03/06/2022 Telephone Adult Medicine - [address] [address] Kyara Hopson DO er follow up Social History Tobacco Use Types Packs/Day Years Used Date Smoking Tobacco: Never Smokeless Tobacco: Never Alcohol Use Standard Drinks/Week Comments No 0 (1 standard drink = 0.6 oz pur e alcohol) Sex Assigned at Date Recorded Not on file documented as of this encounter Miscellaneous Notes * Telephone Encounter - Chiquis Lemus M.A. - 03/06/2022 3:01 PM EDT Notes obtained. * Telephone Encounter - Bia Joseph L.P.N. - 03/06/2022 1:59 PM EDT ER Follow Up Patient was at [facility] Appointment scheduled 03/26 with Matilde Poon PA-C Please obtain Notes prior for providers review * Telephone Encounter - Grace Arita - 03/06/2022 1:28 PM EDT ER follow-up appointment booked NO appts avail, pt doesn't want to go to [facility] If ER or UC follow up, can be booked with APC or MD. If hospital admission follow up MUST be booked with a physician Appointment time: Provider visit is scheduled with: Hospital/ center patient was treated at: [facility] Date of visit: 02/26/22 Was this only an ER/UC visit or was the patient admitted to the hospital? ER visit onlyER visit only If patient was admitted what was the date of discharge? N/A Reason/diagnosis for visit or stay: right knee sprain Was visit or stay related to an injury? NO If yes, what was the date of injury (DOI)? N/A If yes, was the injury due to N/A Tests performed: Lab: YES X-ray: YES EKG: NO Other tests. If yes, what?; N/A documented in this encounter Plan of Treatment Not on file documented as of this encounter Visit Diagnoses Not on filedocumented in this encounter Care Teams Audio Visual Aids Director Relationship Specialty Start Date End Date Kyara Hopson DO PCP - General Internal Medicine 03/06/22 documented as of this encounter
--- OUTSIDE RECORDS SUMMARY | 2025-09-05 17:31 | XMS_ITS | Encounter Summary ---
Author Organization [facility] Address [address] [place] [address] Care Team Providers Care Organizational Development Manager Name Role Phone Kyara Hopson DO Primary Care Provider Unavaila ble Reason for Visit * Reason Onset Date Comments refill request 06/03/2022 Encounter Details Date Type Department Care Team Description 06/03/2022 Refill Adult Medicine - [address] [address] Kyara Hopson DO refill request Social History Tobacco Use Types Packs/Day Years Used Date Smoking Tobacco: Never Smokeless Tobacco: Never Alcohol Use Standard Drinks/Week Comments No 0 (1 standard drink = 0.6 oz pur e alcohol) Sex Assigned at Date Recorded Not on file documented as of this encounter Miscellaneous Notes * Telephone Encounter - Chiquis Littlebozena - 06/03/2022 2:54 PM EDT Refills Last office visit: 03/26/22 - pt was getting this thru his pychiatrist Last pcp: new to pcp Next office visit: 07/06/22 documented in this encounter Plan of Treatment Not on file documented as of this encounter Visit Diagnoses Not on filedocumented in this encounter Care Teams Organizational Development Manager Relationship Specialty Start Date End Date Kyara Hopson DO PCP - General Internal Medicine 03/06/22 documented as of this encounter
--- OUTSIDE RECORDS SUMMARY | 2025-09-05 17:32 | XMS_ITS | Clinical Summary ---
Author Organization [facility] Address [address] [place] [address] Care Team Providers Care Bingo Manager Name Role Phone Kyara Hopson DO Primary Care Provider Unavaila ble Allergies No known active allergies Medications Medication Sig Dispensed Refills Start Date End Date Status sertraline (ZOLOFT) 50 MG tablet One pill by mouth daily^30^5^t 30 Tab 3 06/11/2015 Active Atomoxetine HCl (STRATTERA OR) Take by mouth. 0 Active hydrOXYzine (ATARAX) 50 MG tablet TAKE ONE TABLET BY MOUTH EVERY DAY AT BEDTIME. MAY TAKE ADDITIONAL TABLET DURING THE DAY FOR AGITATION 0 07/21/2022 Active oxcarbazepine (TRILEPTAL) 600 MG tablet TAKE 1 TABLET BY MOUTH TWO TIMES A DAY FOR IRRITABILITY 0 11/20/2023 Active Active Problems Problem Noted Date Morbid obesity 11/21/2019 Mental retardation 08/19/2016 Hearing loss of both ears 06/11/2015 Anxiety 06/11/2015 Family history of ovarian cancer- mom Immunizations Name Administration Dates Next Due Influenza Flu (PT Reported) 09/06/2023, 6 Tdap 09/02/2015 Family History Medical History Relation Name Comments Cancer, Other Mother ovarian Relation Name Status Comments Mother Social History Tobacco Use Types Packs/Day Years Used Date Smoking Tobacco: Never Smokeless Tobacco: Never Tobacco Cessation:Counseling Given: Not Answered Alcohol Use Standard Drinks/Week Comments No 0 (1 standard drink = 0.6 oz pur e alcohol) Sex Assigned at Date Recorded Not on file Last Filed Vital Signs Vital Sign Reading Time Taken Comments Blood Pressure 130/86 11/23/2023 10:57 AM EST Pulse 88 11/23/2023 10:57 AM EST Temperature 35.9 C (96.7 F) 11/23/2023 10:57 AM EST Respiratory Rate 16 10/20/2023 1:22 PM EST Oxygen Saturation - - Inhaled Oxygen Concentration - - Weight 120.2 kg (265 lb) 11/23/2023 10:57 AM EST Height 175.3 cm (5' 9 ) 11/23/2023 10:57 AM EST Body Mass Index 39.13 11/23/2023 10:57 AM EST Plan of Treatment Health Maintenance Due Date Last Done Comments Covid-19 Vaccine (#1) 1980 CHOLESTEROL SCREENING 06/11/2020 06/11/2015 BMI CHECK/ADVISE 11/15/2024 11/23/2023, 07/2024 (Completed), 10/20/2023, Additional history exists DEPRESSION SCREEN 11/23/2024 11/23/2023 (Completed) INFLUENZA (#1) 2025 09/06/2023, 07/2021, 11/12/2020 (External Completion of Vaccination per patient), Additional history exists DTAP/TDAP/TD (2 - Td or Tdap) 09/02/2025 09/02/2015 BASELINE HEALTH EXAM 40-64 11/23/202511/23, 06/23/2017, 09/02/2015 PNEUMOCOCCAL VACCINE FOR HIG H RISK PATIENTS (#1) 2045 Care Teams Bingo Manager Relationship Specialty Start Date End Date Kyara Hopson DO PCP - General Internal Medicine 03/06/22
--- OUTSIDE RECORDS SUMMARY | 2025-09-05 17:32 | XMS_ITS | Clinical Summary ---
Author Organization [address] Address [address] [place] [phone] Phone Care Team Providers Care Reference Services Head Name Role Phone Claudia Newby MD Primary Care Provider [phone] Allergies No known active allergies Medications OXcarbazepine (TRILEPTAL) 600 mg tablet TAKE 1 TABLET BY MOUTH TWO TIMES A DAY FOR IRRITABILITY 4 Active hydrOXYzine HCL (ATARAX) 50 mg tablet TAKE ONE TABLET BY MOUTH EVERY DAY AT BEDTIME. MAY TAKE ADDITIONAL TABLET DURING THE DAY FOR AGITATION 2 Active sertraline (ZOLOFT) 50 mg tablet One pill by mouth daily^30^5^t 5 Active atomoxetine (STRATTERA) 60 mg capsule Take 1 capsule (60 mg total) by mouth 1 (one) time each day. Swallow capsule whole; do not open. If opened accidentally, do not touch eyes; wash hands immediately (product is an eye irritant). Active lisinopril-hyd roCHLOROthiazi de (PRINZIDE,ZEST ORETIC) 10-12.5 mg per tablet Take 1 tablet by mouth 1 (one) time each day. 90 each 1 5 026 Active naproxen (NAPROSYN) 500 mg tablet Take 1 tablet (500 mg total) by mouth 2 (two) times a day if needed for mild pain (pain). 60 tablet 5 026 Active lisinopriL (PRINIVIL,ZEST RIL) 10 mg tablet Take 1 tablet (10 mg total) by mouth 1 (one) time each day. 90 each 1 025 Discontin ued(Formu jordi change) Active Problems Problem Noted Date Diagnosed Date Primary hypertension 04/10/2025 Other specified attention de ficit hyperactivity disorder (ADHD) 02/27/2025 Class 2 severe obesity due t o excess calories with serious comorbidity and body mass index (BMI) of 38.0 to 38.9 in adult 11/21/2019 Intellectual disability 08/19/2016 Anxiety 06/11/2015 Hearing loss of both ears 06/11/2015 Encounters Date Type Department Care Team Description 08/14/2025 2:30 PM EDT [facility] [place] [address] Marion Dias NP Primary hypertension (Primary Dx); Acute pain of right shoulder 07/19/2025 Telephone Internal Medicine - [address] [place] [address] Claudia Newby MD 07/12/2025 1:30 PM EDT [facility] [place] [address] Marion Dias NP Primary hypertension (Primary Dx); Bilateral hearing loss, unspecified hearing loss type 06/27/2025 [facility] [place] [address] Claudia Newby MD 06/19/2025 Telephone Internal Medicine - [address] [phone] Claudia Newby MD from Last 3 Months Immunizations Immunization Administration Dates Next Due Influenza, Unspecified 09/06/2023,08/27/2016 Tdap Tetanus diptheria acell ular pertussis (Boostrix; Adacel) 7yo and older 09/02/2015 Medical History Medical History Date Comments Hearing [...] Recorded Sex Assigned at Not on file Legal Sex Male 4:25 AM EST Gender Identity Not on file Sexual Orientation Not on file Obstetrics History Last Filed Vital Signs Vital Sign Reading Time Taken Comments Blood Pressure 150/92 08/14/2025 2:49 PM EDT Pulse 90 08/14/2025 2:27 PM EDT auto cuff Temperature 36.9 C (98.4 F) 08/14/2025 2:27 PM EDT Respiratory Rate - - Oxygen Saturation - - Inhaled Oxygen Concentration - - Weight 119 kg (262 lb 9.6 oz) 08/14/2025 2:27 PM EDT Height 175.3 cm (5' 9 ) 11/23/2023 10:57 AM EST Body Mass Index 38.78 11/23/2023 10:57 AM EST Plan of Treatment Upcoming Encounters Date Type Department Care Team (Late st Contact Info) Description 10/08/2025 1:30 PM EST Office Visit Internal Medicine - [address] [phone] Marion Dias, MANN [address] [place] [phone] Health Maintenance Due Date Last Done Comments Colorectal Cancer Screening: Colonoscopy 1980 Hepatitis B Vaccines (1 of 3 - 19+ 3-dose series) 1999 HPV Vaccines (1 - 3-dose SCD M series) 2007 Cholesterol Screening (Lipid Panel) 10/18/2022 06/11/2015 HIV Screening 10/18/2022 Hepatitis C Screening 10/18/2022 Medicare Annual Wellness Visit 10/18/2022 Social Influencers of Health Screening 10/18/2022 Depression Screening 11/15/2024 Hypertension/CHF/CAD Annual BMP Blood Test 02/27/2025 COVID-19 Vaccine ( - 2023-2 5 season) 2025 Influenza Vaccine (#1) 2025 3, 08/27/2016 DTaP,Tdap,and Td Vaccines (2 - Td or Tdap) 09/02/2025 09/02/2015 RSV Immunization Adult Patients (1 - 1-dose 75+ series) 2055 HIB Vaccines Aged Out No longer eligi [...] patient's age to complete this topic Meningococcal B Vaccine Aged Out No l onger eligible based on patient's age to complete this topic Pneumococcal Vaccine: Pediatrics (0 to 5 Years) and At-Risk Patients (6 to 49 Years) Aged Out No longer eligible b ased on patient's age to complete this topic RSV Immunization Patients Under 20 months Aged Out No longer eligible b ased on patient's age to complete this topic Varicella Vaccines Aged Out No longer eligible based on patient's age to complete this topic Procedures Procedure Name Priority Date/Time Associated Diagnosis Comments LIPID PANEL Routine 06/11/2015 from Last 3 Months or Most Recently Relevant to Health Maintenance Results * Lipid panel (06/11/2015) LDL/HDL Ratio 3 Triglycerides 56 mg/dL Cholesterol 178 mg/dL HDL 60 mg/dL LDL Cholesterol 107 mg/dL Blood Venous blood specimen / Unknown Historical Provider LAB BLOOD ORDERABLES Tessie l Result from Last 3 Months or Most Recently Relevant to Health Maintenance Insurance MEDICARE MEDICAID - [place] Care Teams Reference Services Head Relationship Specialty Start Date End Date Claudia Newyb MD [address] [place] [address] PCP - General Internal Medicine 01/31/25
--- OUTSIDE RECORDS SUMMARY | 2025-09-05 17:32 | XMS_ITS | Data Portability ---
Author Organization [place] - [facility] Address [address] [place] [address] Care Team Providers Care Family Consumer Scientist Name Role Phone ANCHOR-HAYS, JONAH Primary Care Provider Assessment Encounter Date Assessment Date Assessment LastModified by Organization Details LastModified Time 01/25/2021 01/25/2021 Overview/History : This is a 40-year-old patient [facility] no past medical history being seen for Covid testing after an exposure. He denies any symptoms, reports feeling well. No cough, fever, SOB, CP, N/V/D, or rash. No loss of taste or smell. Exam: Patient is alert, nontoxic appearing in no apparent distress No erythema or exudate noted in the oropharynx. TMs and canals are clear without any signs of infection. No lymphadenopathy. Moist mucous membranes Normal heart sounds, no peripheral edema. Palpable pulses. Lungs are clear, diminished at bases, no rales, rhonchi or wheezing. Breathing is unlabored. Abdomen is soft, nontender positive bowel sounds. No rashes DDx considered, but not limited to: Asymptomatic Covid testing Work up/Results: Physical exam Covid swab Plan/Discussion: Discussed with patient we will call with results in 3-5 days. Vitals are stable. If he develops trouble breathing or chest pain he should be seen in the emergency department, otherwise symptom management reviewed. The patient is advised to make an appt with PCP in 3-5 days to discuss ongoing symptoms/ further management if needed. The patient is also advised to go to the ED immediately for any worsening symptoms. The patient understood and agreed with this plan. The patient was given discharge instructions and all questions were answered prior to team departure. In order to obtain further information and compare any laboratory results/values, I have accessed patient records on the [employer] [facility]. This information was pertinent in my medical decision making today. Proper Personal Protective Equipment (PPE), including gloves, eye protection, N95 mask, gown, and shoe covers were donned and doffed appropriately and all equipment cleaned using approved technique with germicidal disposable wipes prior to and after care of this patient according to [facility]'s infection prevention protocols. [email or web address] Not available 01/25/2021 14:43:00 Plan of Treatment Reminders Order Date Submit Date Provider Last Modified By Organization Details Last Modified Time Details Appointments None recorded. Lab SARS CoV 2 RNA (COVID-19), QL, muffler hand-PCR, respiratory specimen 2020 021 [email or web address] [facility] (Centralized Electronic Ordering - All Locations), Patient Can Go To The Location Of Their Choice, [address] 10:51:07 Referral None recorded. Procedures None recorded. Surgeries None recorded. Imaging None recorded. Medication Orders None recorded. Patient TargetsNo targets recorded. Patient InstructionsNo instructions recorded. Reason for Referral None Reported. Results Created Date Observation Date Name Description Value Unit Range Abnormal Flag Note LastModifiedBy Organization Detail LastModifiedTime 01/26/20 21 01/26/2021 covid -19 (nove l coron aviru s) PCR covid-19 PCR result (neg) NEGAT FLORY 2019- novel Coron aviru s (2018 -nCoV ) not detec alejandro by real- time RT-PC R. Note: If clini gregoria suspi cion for COVID -19 is high, adina nue to maint ain preca ution s and consi ema repea t testi ng. Resul t repor alejandro to the [facility]. To preve nt error s in diagn osis, test resul ts shoul d be inter prete d in the trevor xt of clini gregoria findi ngs and other labor atory data. Rare polym orphi sms exist that could lead to false -nega tive or false -posi tive resul ts. If resul ts obtai ayah do not match the clini gregoria findi ngs, addit ional testi ng shoul d be consi dered . This test has been autho rized by the FDA under an Emerg ency Use Autho rizat ion (EUA) for use by autho rized labor atori es. Testi ng perfo rmed by real time PCR ivonne johnson L[place] 6800 SARS- CoV-2 test. Not Available [facility] (Centralized Electronic Ordering - All Locations) Patient Can Go To The Location Of Their Choice, [id number] 01/26/2021 19:13:12 01/26/2001/26/2021 covid -19 (nove l coron aviru s) PCR covid-19 PCR specimen source NASAL Not Available [facility] (Centralized Electronic Ordering - All Locations) Patient Can Go To The Location Of Their Choice, [id number] 01/26/2021 19:13:12 Result Notes None recorded. Procedures Surgical History Date Name Laterality Status Provider Name and Address Organization Details Recorded Time 01/26/20 Medication Review completed Lubna Jose NP [address] [place] [address], [phone], [place] [facility] 01/25/2021 14:32:21 Imaging Results None recorded. Procedure Notes None recorded. Medical Equipment None Reported. Allergies No known drug allergies Medications Name Sig Start Date Stop Date Status Note LastModified by Organization Details LastModified Time hydroxyzine HCl 50 mg tablet TAKE ONE TABLET BY MOUTH AT BEDTIME - MAY TAKE AN ADDITIONAL TABLET FOR AGITATION IN THE DAY active Not Available Not Available N ot Available oxcarbazepin e 600 mg tablet TAKE ONE TABLET BY MOUTH TWICE A DAY FOR IRRITABILIT Y active Not Available Not Available No t Available sertraline 50 mg tablet TAKE ONE TABLET BY MOUTH EVERY MORNING FOR ANXIETY active Not Available Not Available No t Available atomoxetine 40 mg capsule TAKE ONE CAPSULE BY MOUTH TWICE A DAY IN THE MORNING AND IN THE AFTERNOON FOR INCREASED FOCUS active Not Available Not Available No t Available Vitals Date Recorded Heart rate Oxygen saturation Oxygen saturation in Arterial blood by Pulse oximetry Body temperature Respiratory rate Systolic And Diastolic Provider Name and Address Organization Details Last Updated DateTime 1 100 /min 97 % 97 % 98.8 [degF] 20 /min 156/96 mm[Hg] Not Available [facility] 14:30:43 Social History None recorded. Functional Status None recorded. Mental Status None recorded. Family History Relationship Description Onset Age of this Age Resolved Age Notes LastModified by Organization Details LastModified Time Paternal Grandfather Chronic obstructive pulmonary disease [email or web address] Not available 2020 14:30:49 Medical History Condition Response Coronary Artery Disease N COPD N Depression N Diabetes N Cancer N Stroke N Asthma N High Cholesterol N Pulmonary Embolism N Hypertension N Kidney Disease N Past Encounters Encounter ID Performer Location Encounter Start Date Encounter Closed Date Diagnosis/Indication Diagnosis SNOMED-CT Code Diagnosis ICD10 Code Diagnosis IMO Codes Diagnosis Note [id number] Lubna Jose NP [facility] [address] [place] [address] 01/25/2021 14:22:36 01/27/2021 16:13:50 Exposure to SARS-CoV-2 124263796 Z20.822 Exposure t o communicable disease 586250505 Z20.822 Health Concerns Section Related Observation LastModified by Organization Detai ls LastModified Time None Recorded Concern Status LastModified by Organization Details LastModified Time None Recorded Advance Directives Directive None Recorded Payers Insurance Date Sequence Insurance Name Policy Number Policy Humphrey Covered Member ID Humphrey Member ID Guarantor Name 01/24/2021 1 *SELF PAY* Kenji Ayersdle [id number] Kenji Mike 01/27/2021 2 [place] B-[place]: [facility] Kenji Mckeon [id number] Kenji [place] 01/27/2021 1 [place]ID-[place]: [facility] Kenji Mckeon [id number] Kenji [place] 01/28/2021 1 [place] [facility] Kenji Miller [place] [id number] Kenji [place] 01/27/2021 2 [place] [facility] Kenji Mckeon [id number] Kenji Mckeon Notes Date Note Type Note Provider Name and Address Organization Details Recorded Time 01/25/2021 text/html 40yo male who is new to who reports no PMHx being seen today for asymptomatic Covid testing. He denies any SOB, cough, fevers, N/V/D or rashes, No loss of taste/smell. Lubna Jose NP [address] [place], [address], [place] [facility] 01/25/2021 14:45:34
--- OUTSIDE RECORDS SUMMARY | 2025-09-05 17:32 | XMS_ITS | Encounter Summary ---
Author Organization [facility] Address [address] [place] [address] Care Team Providers Care Quality Assurance Engineer Name Role Phone Kandice-Candace Shepherd MD Primary Care Provider Unavailable Kyara Hopson DO Primary Care Provider Unavaila ble Encounter Details Date Type Department Care Team Description 11/17/2019 Site Head Report Medical Records [address] [place] [id number] Abstract, Provider Social History Tobacco Use Types Packs/Day Years Used Date Smoking Tobacco: Never Smokeless Tobacco: Never Alcohol Use Standard Drinks/Week Comments No 0 (1 standard drink = 0.6 oz pur e alcohol) Sex Assigned at Date Recorded Not on file documented as of this encounter Plan of Treatment Not on file documented as of this encounter Visit Diagnoses Not on filedocumented in this encounter Care Teams Quality Assurance Engineer Relationship Specialty Start Date End Date Candace Mccauley MD PCP - General Internal Medicine 03/07/15 Kyara Hopson DO PCP - General Internal Medicine 03/06/22 documented as of this encounter
--- OUTSIDE RECORDS SUMMARY | 2025-09-05 17:32 | XMS_ITS | Encounter Summary ---
Author Organization [facility] Address [address] [place] [address] Care Team Providers Care Oral Communication Instructor Name Role Phone Kyara Hopson DO Primary Care Provider Unavaila ble Encounter Details Date Type Department Care Team Description 02/09/2024 Chiropractor Sole Practitioner Report Medical Records [address] [place] [id number] Abbasy, George, DMD Social History Tobacco Use Types Packs/Day Years [...] on filedocumented in this encounter Care Teams Oral Communication Instructor Relationship Specialty Start Date End Date Kyara Hopson DO PCP - General Internal Medicine 03/06/22 documented as of this encounter
--- OUTSIDE RECORDS SUMMARY | 2025-09-05 17:32 | XMS_ITS | Encounter Summary ---
Author Organization [facility] Address [address] [place] [address] Care Team Providers Care Algorithm Developer Name Role Phone Kyara Hopson DO Primary Care Provider Unavaila ble Encounter Details Date Type Department Care Team Description 02/09/2024 Registered Radiographer Report Medical Records [address] [place] [address] Abbasy, George, DMD Social History Tobacco Use [...] on filedocumented in this encounter Care Teams Algorithm Developer Relationship Specialty Start Date End Date Kyara Hopson DO PCP - General Internal Medicine 03/06/22 documented as of this encounter
== END 2025-09-05 12:41 | disposition home or self-care (01) ==
LOC: HO.HAP 12:40
PROVIDERS: Visit Provider Internal Medicine
DX: Z46.1 Encounter for fitting and adjustment of hearing aid (principal); H90.A31 Mixed conductive and sensorineural hearing loss, unilateral, right ear with restricted hearing on the contralateral side; H90.A22 Sensorineural hearing loss, unilateral, left ear, with restricted hearing on the contralateral side
CPT/HCPCS: V5011; V5020; V5160; V5261; V5264

== ENCOUNTER 2025-09-11 12:05 | Outpatient (REF) | payer MEDICARE, MEDICAID, SELFPAY ==
--- OUTSIDE RECORDS SUMMARY | 2025-09-11 15:26 | XMS_ITS | Clinical Summary ---
Author Organization [address] Building Address [address] [place] [phone] Phone Care Team Providers Care Nursing Educator Name Role Phone Claudia Newby MD Primary Care Provider [phone] Allergies No known active allergies Medications OXcarbazepine [...] PM EDT [facility] [place] [address] Marion Dias NP Primary hypertension (Primary Dx); Acute pain of right shoulder 07/19/2025 Telephone Internal Medicine - [address] [place] [address] Claudia Newby MD 07/12/2025 1:30 PM EDT [facility] [place] [address] Marion Dias NP Primary hypertension (Primary Dx); Bilateral hearing loss, unspecified hearing loss type 06/27/2025 [facility] [place] [address] Claudia Newby MD 06/19/2025 Telephone Internal Medicine - [address] [address] Claudia Newby MD from Last 3 Months [...] PM EST Office Visit Internal Medicine - [address] [address] Marion Dias, MANN [address] [place] [address] Health Maintenance Due Date Last Done Comments [...] Insurance MEDICARE [place]ICAID - [place] Care Teams Nursing Educator Relationship Specialty Start Date End Date Claudia Newby MD [address] [place] [address] PCP - General Internal Medicine 01/31/25
== END 2025-09-11 12:06 | disposition home or self-care (01) ==
LOC: HO.HAP 12:05
PROVIDERS: Visit Provider Nurse Practitioner Primary Care
DX: Z13.89 Encounter for screening for other disorder (principal)

== ENCOUNTER 2025-09-21 10:19 | Outpatient (REF) | payer MEDICARE, MEDICAID, SELFPAY ==
--- OUTSIDE RECORDS SUMMARY | 2025-09-21 12:09 | XMS_ITS | Data Portability ---
Author Organization [place] - [facility] Address [address] [place] [phone] Care Team Providers Care Assistive Technology Trainer Name Role Phone ANCHOR-HAYS, JONAH Primary Care Provider Assessment Encounter Date Assessment Date Assessment LastModified by Organization Details LastModified Time 01/25/2021 01/25/2021 Overview/History : This is a 40-year-old patient who is new to [facility] with no past medical history being seen [...] I have accessed patient records on the [employer]. This information was pertinent in my medical decision making today. Proper Personal Protective Equipment (PPE), including gloves, eye protection, N95 mask, gown, and shoe covers were donned and doffed appropriately and all equipment cleaned using approved technique with germicidal disposable wipes prior to and after care of this patient according to [facility]'s infection prevention protocols. [email or web address] Not available 01/25/2021 14:43:00 Plan of Treatment Reminders Order Date Submit Date Provider Last Modified By Organization Details Last Modified Time Details Appointments None recorded. Lab SARS CoV 2 RNA (COVID-19), QL, machine bender-PCR, respiratory specimen 2020 021 [email or web address] [facility] (Centralized Electronic Ordering - All Locations), Patient Can Go To The Location Of Their Choice, [address] 10:51:07 Referral None recorded. Procedures None recorded. [...] ng. Resul t repor alejandro to the [facility]. To preve nt error s [...] Go To The Location Of Their Choice, [id number] 01/26/2021 19:13:12 01/26/2001/26/2021 covid -19 (nove l coron aviru s) PCR covid-19 PCR specimen source NASAL Not Available [facility] (Centralized Electronic Ordering - All Locations) Patient Can Go To The Location Of Their Choice, [id number] 01/26/2021 19:13:12 Result Notes None recorded. Procedures Surgical History Date Name Laterality Status Provider Name and Address Organization Details Recorded Time 01/26/20 Medication Review completed Lubna Jose NP [address] [place] [address], [address], [place] [facility] 01/25/2021 14:32:21 Imaging Results [...] Time Paternal Grandfather Chronic obstructive pulmonary disease [email or web address] Not available 2020 14:30:49 Medical History Condition Response Diabetes N Coronary Artery Disease N High Cholesterol N Pulmonary Embolism N Cancer N Hypertension N Stroke N Asthma N COPD N Depression N Kidney Disease N Past Encounters Encounter ID Performer Location Encounter Start Date Encounter Closed Date Diagnosis/Indication Diagnosis SNOMED-CT Code Diagnosis ICD10 Code Diagnosis IMO Codes Diagnosis Note [id number] Lubna Jose NP [facility] [address] [place] [address] 01/25/2021 14:22:36 01/27/2021 16:13:50 Exposure to SARS-CoV-2 477284797 Z20.822 Exposure t o communicable disease 973195891 Z20.822 Health Concerns Section Related Observation LastModified by Organization Detai ls LastModified Time None Recorded Concern Status LastModified by Organization Details LastModified Time None Recorded Advance Directives Directive None Recorded Payers Insurance Date Sequence Insurance Name Policy Number Policy Humphrey Covered Member ID Humphrey Member ID Guarantor Name 01/24/2021 1 *SELF PAY* Kenji Ayersdle [id number] Kenji Mike 01/27/2021 2 MEDICARE B-[place]: [facility] Kenji Mckeon [id number] Kenji [place] 01/27/2021 1 MED[place]ID-[place]: [facility] Kenji Mckeon [id number] Kenji [place] 01/28/2021 1 MEDICARE B-[place]: [facility] Kenji [place] [id number] Kenji [place] 01/27/2021 2 [place] [facility] Kenji Mckeon [id number] Kenji Mckeon Notes Date Note Type Note Provider Name and Address Organization Details Recorded Time 01/25/2021 text/html 40yo male who is new to who reports no PMHx being seen today for asymptomatic Covid testing. He denies any SOB, cough, fevers, N/V/D or rashes, No loss of taste/smell. Lubna Jose NP [address] [place], [address], [place] [facility] 01/25/2021 14:45:34
--- OUTSIDE RECORDS SUMMARY | 2025-09-21 12:09 | XMS_ITS | Clinical Summary ---
Author Organization [address] Building Address [address] [place] [phone] Phone Care Team Providers Care Art Preparator Name Role Phone Claudia Newby MD Primary Care Provider [phone] Allergies No known active allergies Medications OXcarbazepine [...] immediately (product is an eye irritant). Active lisinopril-hydr oCHLOROthiazide (PRINZIDE,ZESTO RETIC) 10-12.5 mg per tablet Take 1 tablet by mouth 1 (one) time each day. 90 each 1 5 02/11/20 26 Active naproxen (NAPROSYN) 500 mg tablet Take 1 tablet (500 mg total) by mouth 2 (two) times a day if needed for mild pain (pain). 60 tablet 5 08/14/20 26 Active Active Problems Problem Noted Date Diagnosed Date [...] PM EDT Office Visit Internal Medicine - [address] [place] [address] Marion Dias NP Primary hypertension (Primary Dx); Acute pain of right shoulder 07/19/2025 Telephone Internal Medicine - [address] [place] [address] Claudia Newby MD 07/12/2025 1:30 PM EDT Office Visit Internal Medicine - [address] [place] [address] Marion Dias NP Primary hypertension (Primary Dx); Bilateral hearing loss, unspecified hearing loss type 06/27/2025 Telephone Internal Medicine - [address] [place] [address] Claudia Newby MD from Last 3 Months [...] PM EST Office Visit Internal Medicine - [address] [address] Marion Dias, MANN [address] [place] [address] Health Maintenance Due Date Last Done Comments [...] mg/dL Blood Venous blood specimen / Unknown [facility] Provider LAB BLOOD ORDERABLES Tessie l Result from Last 3 Months or Most Recently Relevant to Health Maintenance Insurance MEDICARE MEDICAID - [place] Care Teams Art Preparator Relationship Specialty Start Date End Date Claudia Newby MD [address] [place] [phone] PCP - General Internal Medicine 01/31/25
== END 2025-09-21 10:20 | disposition home or self-care (01) ==
LOC: HO.HAP 10:19
PROVIDERS: Visit Provider Internal Medicine
DX: Z13.89 Encounter for screening for other disorder (principal)